=== PATIENT | female | born 1975 | race Caucasian/White ===

== ENCOUNTER 2019-02-07 20:27 | Emergency (ER) | payer BC ==
[2019-02-07] MEDS ORDERED: HYDROcodone/ACETAMIN 5-325 MG* 1 TAB PO ONE ×2 (20:48→22:00)
[2019-02-07] MEDS ORDERED: Lidocaine 4% TOPICAL* 50 ML TOP.SOLN TOPICAL ONE (20:48)
[2019-02-07] MEDS ORDERED: Ondansetron ODT TAB* 4 MG PO ONE (20:48)
[2019-02-07 20:55] VITALS: BP 134/78
[2019-02-07] MEDS ORDERED: Bupivacaine 0.25% SDV PF* 10 ML VIAL INJ ONE (21:23)
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
[2019-02-07] MEDS ORDERED: Cephalexin CAP* 500 MG PO ONE (21:58)
== END 2019-02-07 22:20 | disposition home or self-care (01) ==
LOC: UCEAST 20:27
DX: S61.214A Laceration without foreign body of right ring finger without damage to nail, initial encounter (principal); X58.XXXA Exposure to other specified factors, initial encounter; Y92.9 Unspecified place or not applicable
CPT/HCPCS: 12001; 99203; A9270-GY; G0463; J3490